=== PATIENT | female | born 1980 | race Caucasian/White ===

== ENCOUNTER 2016-10-24 13:03 | Emergency (ER) | payer MEDICAID ==
[~2016-10-24] VITALS: Ht 162.6 cm; Wt 81.4 kg
[~2016-10-24 13:03] MED LIST: LORT5TAB PO; RANI300T PO; Z.0.NO CURRENT MEDS
[2016-10-24 13:08] VITALS: BP 167/120; PULSE 105; RESP 18; TEMP 98.9; O2SAT 99
[2016-10-24] MEDS ORDERED: LISI10TA3 PO (14:35)
--- NOTE | 2016-10-24 14:35 | PD ---
HPI Chief Complaint: Hypertension Time Seen by Provider: 14:24 Travel History International Travel<30 days: No Contact w/Intl Traveler<30days: No Traveled to known affect area: No History of Present Illness HPI 36-year-old female complains of elevated blood pressure. Patient has history hypertension however did not have insurance and has not seen a physician or taken blood pressure medication for longtime. Patient was seen by personal physician this morning with a first-time and blood per with elevated in the office. Patient was advised to go to ED for evaluation. Patient denies any headache. Patient denies any chest pain or shortness of breath. Patient denies any other symptom. PFSH Past Medical History Cancer: Yes (CERVICAL CANCER, [place] W/ CRY[place] X 8) Cardiovascular Problems: Yes (HTN) Hypertension: Yes Reproductive: Yes (CERVICAL CANCER AT 15. NOW IN REMISSION) Tetanus Vaccination: > 5 Years Influenza Vaccination: No ?: Not LMP: 2 weeks ago : 4 Para: 2 Miscarriage: 1 Past Surgical History Surgical History: No Previous Surgery Social History Alcohol Use: No Tobacco Use: No Substance Use: No Allergies-Medications (Allergen,Severity, Reaction): Coded Allergies: No Known Allergies (Verified , 10/24/16) Reported Meds & Prescriptions Reported Meds & Active Scripts Active No Active Prescriptions or Reported Medications Review of Systems General / Constitutional: No: Fever Eyes: No: Visual changes HENT: No: Headaches Cardiovascular: No: Chest Pain or Discomfort Respiratory: No: Shortness of Breath Gastrointestinal: No: Abdominal Pain Genitourinary: No: Dysuria Musculoskeletal: No: Pain Skin: No Rash Neurologic: No: Weakness Psychiatric: No: Depression Endocrine: No: Polydipsia Hematologic/Lymphatic: No: Easy Bruising Physical Exam Narrative GENERAL: Well-nourished, well-developed patient. SKIN: Warm and dry. HEAD: Normocephalic. EYES: No scleral icterus. No injection or drainage. NECK: Supple, trachea midline. No JVD or lymphadenopathy. CARDIOVASCULAR: Regular rate and rhythm without murmurs, gallops, or rubs. RESPIRATORY: Breath sounds equal bilaterally. No accessory muscle use. GASTROINTESTINAL: Abdomen soft, non-tender, nondistended. MUSCULOSKELETAL: No cyanosis, or edema. BACK: Nontender without obvious deformity. No CVA tenderness. Data Data Last Documented VS Vital Signs Date Time Temp Pulse Resp B/P Pulse Ox O2 Delivery O2 Flow Rate FiO2 10/24/16 13:08 98.9 105 18 167/120 99 MDM Medical Decision Making Medical Screen Exam Complete: Yes Emergency Medical Condition: Yes Differential Diagnosis Differential diagnosis including uncontrolled hypertension, hypertensive emergency, hypertensive crisis. Narrative Course 36-year-old female with elevated blood pressure. Blood pressure in the office was elevated however in the ED 150/97. Diagnosis Primary Impression: Uncontrolled hypertension Patient Instructions: General Instructions Additional Instructions: Lisinopril as directed. Follow-up with personal physician. Return if worse. Med/Other Pt SpecificInfo: Prescription(s) given Scripts Lisinopril 10 Mg Tab10 Mg PO DAILY #30 TAB Ref 0 Prov:Jeromy Simpson MD 10/24/16 Disposition: 01 DISCHARGE HOME Condition: Stable Jeromy Simpson MD Oct 24, 2016 14:35
[2016-10-24 14:40] VITALS: BP 151/97; PULSE 95; RESP 14; O2SAT 95
== END 2016-10-24 14:40 | disposition home or self-care (01) ==
LOC: PHED 13:03
DX: I10 Essential (primary) hypertension (principal)
CPT/HCPCS: 99283

== ENCOUNTER → 2016-10-26 | Outpatient (CLI) | payer MEDICAID ==
[~2016-10-26] MED LIST changes: +LISI10TA3 PO; -LORT5TAB PO; -RANI300T PO; -Z.0.NO CURRENT MEDS
--- NOTE | 2016-10-26 19:29 | EKG ---
Date Performed: 10/26/2016 Time Performed: 10:52:36 PTAGE: 36 years EKG: Sinus rhythm NORMAL ECG NO PREVIOUS TRACING DOCTOR: Tristen Collazo Interpretating Date/Time 10/26/2016 19:27:46
== END ==
LOC: HCAV 10:44
PROVIDERS: ATTEND Internal Medicine
DX: I10 Essential (primary) hypertension (principal)
CPT/HCPCS: 93005